=== PATIENT | female | born 1990 | race Caucasian/White ===

== ENCOUNTER 2020-10-12 12:38 | Emergency (ER) | payer OTHER ==
[~2020-10-12] VITALS: Ht 170.2 cm; Wt 104.3 kg
[2020-10-12] MEDS ORDERED: AMOXIL 875 MG875 M1 PO (14:00)
[2020-10-12 14:16] VITALS: BP 139/80
== END 2020-10-12 14:17 | disposition home or self-care (01) ==
LOC: M.ERS 12:38
DX: K08.89 Other specified disorders of teeth and supporting structures (principal); R68.84 Jaw pain